=== PATIENT | male | born 1985 | race Caucasian/White ===

== ENCOUNTER 2017-09-11 15:28 | Observation (INO) | payer OTHER ==
[~2017-09-11 15:28] MED LIST: CEFAZOLIN 1 GM INJ; ROCURONIUM 50 MG INJ
[2017-09-11] MEDS ORDERED: ROPIVACAINE 0.5 % 30 ML VIAL ×2 (15:55→19:28)
[2017-09-11] MEDS ORDERED: SUCCINYLCHOLINE CHLORIDE 100 MG/5 ML SYG IV (17:17)
[2017-09-11] MEDS ORDERED: ROCURONIUM 50 MG INJ (17:17)
[2017-09-11] MEDS ORDERED: NEOSTIGMINE 3 MG/3 ML SYRINGE ×2 (17:17→19:06)
[2017-09-11] MEDS ORDERED: GLYCOPYRROLATE 1 MG INJ (17:17)
[2017-09-11] MEDS ORDERED: LIDOCAINE 2% (SDV) 5 ML INJ (17:17)
[2017-09-11] MEDS ORDERED: MEPERIDINE 100 MG INJ (17:17)
[2017-09-11] MEDS ORDERED: PROPOFOL 20 ML (17:17)
[2017-09-11] MEDS ORDERED: DIPHENHYDRAMINE 25 MG CAP PO (17:30)
[2017-09-11] MEDS ORDERED: CEFAZOLIN 1 GM INJ IV (17:30)
[2017-09-11] MEDS ORDERED: morphine 10 MG INJ IV (17:30)
[2017-09-11] MEDS ORDERED: OXYCODONE/ACETAMINOPHEN (5/325) TAB PO ×2 (18:30)
[2017-09-11] MEDS ORDERED: MEPERIDINE 25 MG INJ IV (18:30)
[2017-09-11] MEDS ORDERED: FENTAnyl 50 MCG/ML VIAL IV ×3 (18:30)
[2017-09-11] MEDS ORDERED: EPHEDrine SULFATE 50 MG/5 ML SYG IV (18:30)
[2017-09-11] MEDS ORDERED: DIPHENHYDRAMINE 50 MG INJ IV (18:30)
[2017-09-11] MEDS ORDERED: METOCLOPRAMIDE 10 MG INJ IV (18:30)
[2017-09-11] MEDS ORDERED: hydrALAzine 20 MG INJ IV (18:30)
[2017-09-11] MEDS ORDERED: ONDANSETRON 4 MG INJ IV (18:30)
[2017-09-11] MEDS ORDERED: HYDROmorphONE (0.2 MG/ML) 10ML SYG IV ×3 (18:30→20:42)
[2017-09-11] MEDS ORDERED: MIDAZOLAM 1 MG/ML 2 ML INJ IV (18:30)
[2017-09-11] MEDS ORDERED: LABETALOL HCL 20MG INJ ×2 (18:43→20:43)
[2017-09-11] MEDS ORDERED: BUPIVACAINE 0.5% (SDV) 30 ML INJ (19:29)
[2017-09-11] MEDS: BACITRACIN/POLYMYXIN 28.35 GM OINT TOP (20:42)
[2017-09-11] MEDS: HYDROmorphONE (0.2 MG/ML) 10ML SYG IV (20:55)
[2017-09-11] MEDS: LABETALOL HCL 20MG INJ IV (20:56)
[2017-09-11] MEDS: HYDROmorphONE 0.2 MG/ML PCA IV ×2 (21:23→22:23)
[2017-09-11] MEDS: PREGABALIN 75 MG CAP PO (22:29)
[2017-09-11] MEDS: oxyCODONE 5 MG TAB PO (22:29)
[2017-09-11] MEDS: CEFAZOLIN 2 GM/50 ML (PMX) 50 ML IVPB (22:32)
[2017-09-11] MEDS: ONDANSETRON 4 MG INJ IV (22:52)
[2017-09-11] MEDS: hydrALAzine 20 MG INJ IV (23:08)
[2017-09-12] MEDS: oxyCODONE 5 MG TAB PO ×3 (01:00→08:25)
[2017-09-12] MEDS: ONDANSETRON 4 MG INJ IV (02:34)
[2017-09-12] MEDS: HYDROmorphONE 0.2 MG/ML PCA IV (03:29)
[2017-09-12] MEDS ORDERED: ONDANSETRON 4 MG INJ IV (05:30)
[2017-09-12] MEDS: CEFAZOLIN 2 GM/50 ML (PMX) 50 ML IVPB ×3 (06:21→21:45)
[2017-09-12] MEDS: PREGABALIN 75 MG CAP PO ×2 (08:25→20:18)
[2017-09-12] MEDS: AMLODIPINE 2.5 MG TAB PO ×2 (08:25→11:27)
[2017-09-12] MEDS: ONDANSETRON INJ 8 MG in DEXTROSE 5% 50 ML IV (08:28)
[2017-09-12] MEDS ORDERED: HYDROCODONE/APAP (5/325) TAB PO (13:00)
[2017-09-12] MEDS: HYDROCODONE/APAP (5/325) TAB PO ×3 (13:06→21:45)
[2017-09-12] MEDS: hydrALAzine 20 MG INJ IV (20:17)
[2017-09-13] MEDS: HYDROCODONE/APAP (5/325) TAB PO ×3 (02:50→11:48)
[2017-09-13 05:19] LABS: ADD MAN DIFF? NO
[2017-09-13 05:23] LABS: BASOPHILS % 0.3 % (0.0-2.0); EOSINOPHILS # 0.2 10^3/ul (0.0-0.5); EOSINOPHILS % 1.6 % (0.0-7.0); HEMOGLOBIN 14.9 g/dl (14.0-18.0); LYMPHOCYTES # 1.9 10^3/ul (0.8-2.9); MEAN CORPUSCULAR HEMOGLOBIN 29.3 pg (29.0-33.0); MEAN CORPUSCULAR HGB CONC 33.9 g/dl (32.0-37.0); MEAN CORPUSCULAR VOLUME 86.4 fl (82.0-101.0); MEAN PLATELET VOLUME 9.5 fl (7.4-10.4); MONOCYTE # 0.7 10^3/ul (0.3-0.9); MONOCYTES % 6.8 % (0.0-11.0); NEUTROPHIL # 6.7 10^3/ul (1.6-7.5); PLATELET COUNT 260 10^3/UL (140-415); RED BLOOD COUNT 5.09 10^6/ul (4.70-6.10); RED CELL DISTRIBUTION WIDTH 11.6 % (11.5-14.5)
[2017-09-13 05:23] LABS: WHITE BLOOD COUNT 9.5 10^3/ul (4.8-10.8)
[2017-09-13] MEDS: CEFAZOLIN 2 GM/50 ML (PMX) 50 ML IVPB (05:38)
[2017-09-13 05:46] LABS: ANION GAP 17 (8-16); BLOOD UREA NITROGEN 11 mg/dl (7-20); CALCIUM 8.5 mg/dl (8.4-10.2); CARBON DIOXIDE 28 mmol/L (21-31); CHLORIDE 102 mmol/L (97-110); CREATININE 0.73 mg/dl (0.61-1.24); GLUCOSE 114 mg/dl (70-220); MAGNESIUM 2.1 mg/dl (1.7-2.5); PHOSPHORUS 3.5 mg/dl (2.5-4.9); POTASSIUM 3.6 mmol/L (3.5-5.1); SODIUM 143 mmol/L (135-144)
[2017-09-13] MEDS ORDERED: AMLODIPINE 5 MG TAB (07:44)
[2017-09-13] MEDS ORDERED: AMLODIPINE 10 MG TAB (07:44)
[2017-09-13] MEDS: PREGABALIN 75 MG CAP PO (07:46)
[2017-09-13] MEDS ORDERED: AMLODIPINE 2.5 MG TAB (07:49)
[2017-09-13] MEDS: AMLODIPINE 2.5 MG TAB PO (07:50)
[2017-09-13] MEDS: AMLODIPINE 5 MG TAB PO (13:57)
== END 2017-09-13 14:30 | disposition home or self-care (01) ==
LOC: SDS 15:28 → REC 17:28 → MS1 22:44
DX: S82.851A Displaced trimalleolar fracture of right lower leg, initial encounter for closed fracture (principal); S93.491A Sprain of other ligament of right ankle, initial encounter; M65.871 Other synovitis and tenosynovitis, right ankle and foot; X58.XXXA Exposure to other specified factors, initial encounter; Y93.67 Activity, basketball
CPT/HCPCS: 27822; 73610-RT; 80048; 80307; 82306; 83735; 84100; 85025; 97116; 97163; 97530; 99217